=== PATIENT | female | born 1985 | race Caucasian/White ===

== ENCOUNTER 2017-01-23 21:35 | Inpatient (IN) ==
[2017-01-23] MEDS ORDERED: Mag Hydrox/Al Hydrox/Simeth 30 ML UDC PO PRN (22:06)
[2017-01-23] MEDS ORDERED: Haloperidol Lactate 5 MG/ML VIAL IM PRN (22:06)
[2017-01-23] MEDS ORDERED: *HR* LORazepam 1 MG TABLET PO PRN (22:06)
[2017-01-23] MEDS ORDERED: *HR* LORazepam 2 MG/ML VIAL IM PRN (22:06)
[2017-01-23] MEDS ORDERED: MOM Conc 10 ML UD.LIQ PO PRN (22:06)
[2017-01-23] MEDS ORDERED: Ibuprofen 400 MG TABLET PO PRN (22:06)
[2017-01-24] MEDS: traZODone 50 MG TABLET PO PRN ×2 (00:07→20:57)
[2017-01-24] MEDS ORDERED: Nicotine 2 MG GUM BC PRN (08:07)
--- NOTE | 2017-01-24 10:44 | Psychiatry History & Physical ---
Date of Encounter: 01/24/17 Time of Encounter: 10:00 History of Present Illness Patient Stated Chief Complaint: Delusional Medicare Admission Attestation: For traditional Medicare patients the provided hospital inpatient services are reasonable and necessary and in the case of services not specified as inpatient -only under 42 CFR 419.22 (n), that they are appropriately provided as inpatient services in accordance 42 CFR 412.3. For Critical Access Hospital the patient may reasonably be expected to be discharged or transferred to a hospital within 96 hours after admission to the Critical Access Hospital. Admitted From: Hospital to Hospital Transfer ([facility]) History of Present Illness: Ms. Landis is a 31 year old female admitted from [facility] for evaluation of psychosis. Patient was reported to be delusional paranoids and religiously preoccupied and noncompliant with her medication. Her tox screen was positive for THC. From the records patient had history of psychiatric treatment for psychosis and bipolar her most recent hospitalization was 2013 and she has been recently taking gabapentin for treatment of cyclothymia. [facility] where she has case management and medication management. She reports of poor sleep, irritability and she does not believe she needs to be in the hospital or take medication. She tells me she is spiritual . Patient also has a history of substance abuse including stimulants and opiates and benzodiazepine and has been in senior care for drug-related charges and currently on probation for similar charge. She has high school education and some college and unemployed and has 2 children age 7 and 9. She has a history of pseudoseizures and she believes marijuana is the best treatment for that condition and she smokes it daily. Past Med Surg Social Fam HX - Past Medical History Medical history: seizures - Past Psychiatric History Psychiatric history: Reports: bipolar, prior suicide attempt, schizophrenia, previous psychiatric hospitalization Family psychiatric history: Unknown Family History of Suicide: Unknown - Past Surgical History Surgical History: , sinus surgery - Social History Smoking Status: Current every day smoker Smokeless Tobacco Status: No Alcohol use: rarely Drug use: cocaine, opiates, marijuana, methamphetamine Medications & Allergies Gabapentin [Neurontin] 300 mg PO TID 01/23/17 [History] Cyclobenzaprine [Flexeril] 10 mg PO BID 01/24/17 [History] Fluticasone Propionate Nasal [Flonase] 1 spray NS DAILY 01/24/17 [History] Ibuprofen [Motrin] 800 mg PO Q8HR 01/24/17 [History] Loratadine [Claritin] 10 mg PO DAILY 01/24/17 [History] Allergies No Known Allergies Allergy (Verified 01/24/17 09:57) Review of Systems Psychiatric: Reports: irritability, mood swings, other (Paranoid delusions, religiously preoccupied) Mental Status Exam Patient orientation: Yes Person, Yes Time, Yes Place Level of alertness: Alert Patient appearance: Appropriate, Well Groomed Behavior: cooperative, anxious, suspicious, distractible, talkative Psychomotor activity: Increased Eye contact: Fleeting Contact Mood description: Angry, Anxious, Labile, Irritable Affect description: congruent with mood, labile, euphoric Speech pattern: Disorganized, Excessive, Pressured Speech volume: Loud Thought process: Tangential, Flight of Ideas, Disorganized Thought content: No Suicidal ideation, No Homicidal ideation, Yes Overt delusions, Yes Ideas of reference, Yes Preoccupation, Yes Paranoid delusion, Yes Latter-Day delusion Perceptual disturbances: Yes Reacting to internal stimuli, No Auditory hallucinations, No Visual hallucinations Attention span: Unable to Focus Memory description: Recent Impaired Patient reliability: Questionable Historian Intelligence estimate: Average Judgment: Limited Insight: Partial Results - Vital Signs Vital signs: Temp Pulse Resp BP 97.8 F 85 18 135/93 01/24/17 08:48 01/24/17 08:48 01/24/17 08:48 01/24/17 08:48 Assessment and Plan (1) Unspecified psychosis Current visit: Yes Status: Acute Plan: Admit inpatient for safety and stabilization, Close observation, Suicide Precautions per unit protocol, Encourage participation in unit milieu, Group Therapy, Monitor sleep, Monitor appetite Risks, benefits, side effects, alternatives discussed w/pt: Yes Patient agreeable to treatment: No (Refused adding any medication) Estimated Length of Stay (Days): 5 Qualifiers: Psychosis type: unspecified psychosis type Qualified Code(s): F29 - Unspecified psychosis not due to a substance or known physiological condition
[2017-01-24] MEDS ORDERED: Ibuprofen 800 MG TABLET PO SCH (14:00)
[2017-01-24] MEDS ORDERED: Acetaminophen 325 MG TABLET PO PRN ×2 (14:09→16:05)
[2017-01-24] MEDS: Gabapentin 300 MG CAPSULE PO SCH ×2 (14:28→20:27)
[2017-01-24] MEDS ORDERED: Ibuprofen 800 MG TABLET PO PRN (15:57)
[2017-01-24] MEDS: hydrOXYzine pamoate 25 MG CAPSULE PO PRN (19:55)
[2017-01-25] MEDS: Gabapentin 300 MG CAPSULE PO SCH ×3 (08:27→20:35)
[2017-01-25] MEDS: Loratadine 10 MG TABLET PO SCH (08:27)
[2017-01-25] MEDS ORDERED: Fluticasone Propionate Nasal 50 MCG/SPRAY BOTTLE NS SCH (09:00)
--- NOTE | 2017-01-25 10:52 | Psychiatry Progress Note ---
Date of Encounter: 01/25/17 Time of Encounter: 10:00 Subjective Interval history: Patient is seen for follow-up with treatment team. She is reported to take her medication on and off, she had a good night sleep was trazodone. She continued to be delusional and religiously preoccupied and anxious to be discharged. Her speech is pressured with flight of ideas. She is labile and irritable. She is refusing any additional medications. I discussed with the treatment team several issues and questions that need to be answered in order for patient to be stabilized and safely discharged: 1. Patient permission for social service worker to contact her bottle caser and her and assure the safety of her children 2. Reports on patient inability to take care of her children and herself including medication compliance 3. We may need to requests a court hearing including forced medication. Review of Systems Psychiatric: Reports: irritability, mood swings, other (Paranoid delusions, religiously preoccupied) Objective: Exam Patient orientation: Yes Person, Yes Time, Yes Place Level of alertness: Alert Patient appearance: Appropriate, Well Groomed Behavior: cooperative, nervous, restless, distractible, impulsive, talkative Psychomotor activity: Increased Eye contact: Fleeting Contact Mood description: Angry, Anxious, Labile, Irritable Affect description: congruent with mood, labile, anxious Speech pattern: Excessive, Pressured, Repetitive Speech volume: Loud Thought process: Tangential, Flight of Ideas, Racing Thought content: No Suicidal ideation, No Homicidal ideation, No Overt delusions , Yes Preoccupation, Yes Paranoid delusion, Yes Evangelical delusion Perceptual disturbances: No Auditory hallucinations, No Visual hallucinations Judgment: Fair Insight: Partial Results - Vital Signs Vital Signs: Temp Pulse Resp BP 98.4 F 70 16 126/81 01/25/17 08:11 01/25/17 08:11 01/25/17 08:11 01/25/17 08:11 Assessment and Plan (1) Unspecified psychosis Current visit: Yes Status: Acute Plan: Continue hospitalization, Close observation, Suicide Precautions per unit protocol, Encourage participation in unit milieu, Group Therapy, Monitor sleep, Monitor appetite Risks, benefits, side effects, alternatives discussed w/pt: Yes Patient agreeable to treatment: No (Refused adding any medication) Qualifiers: Psychosis type: unspecified psychosis type Qualified Code(s): F29 - Unspecified psychosis not due to a substance or known physiological condition Consult Discharge Plan - Plan Referrals: NO,PCP [Primary Care Provider] -
[2017-01-25] MEDS: traZODone 50 MG TABLET PO PRN (20:35)
[2017-01-26] MEDS: hydrOXYzine pamoate 25 MG CAPSULE PO PRN ×2 (01:33→12:16)
[2017-01-26] MEDS: Gabapentin 300 MG CAPSULE PO SCH ×3 (08:32→21:09)
[2017-01-26] MEDS: Loratadine 10 MG TABLET PO SCH (08:32)
--- NOTE | 2017-01-26 14:46 | Psychiatry Progress Note ---
Date of Encounter: 01/26/17 Time of Encounter: 14:20 Subjective Interval history: Patient seen for follow-up. Staff report she is less labile and more focused, she is compliant with medication and attend activities and group. Her speech is not pressured and no delusions are reported. She gave permission to the hospital social worker to contact her and her casey saw operator. piece dye worker reported information regarding patient's condition and her ability to manage the household and children. piece dye worker discussed with the hospital and a casey saw operator safety plan after discharge and help patient maintain compliance with medication and appointments. She is reporting good sleep and appetite. piece dye worker is working on discharge plans. Review of Systems Psychiatric: Reports: irritability, mood swings, other (Paranoid delusions, religiously preoccupied) Objective: Exam Patient orientation: Yes Person, Yes Time, Yes Place Level of alertness: Alert Patient appearance: Appropriate, Well Groomed Behavior: calm, cooperative Psychomotor activity: Normal Eye contact: Maintains Eye Contact Mood description: Euthymic/stable, Anxious Affect description: congruent with mood, full range Speech pattern: Normal rate, Normal rhythm, Normal tone Speech volume: Normal Thought process: Linear, Goal Oriented Thought content: No Suicidal ideation, No Homicidal ideation, No Overt delusions Perceptual disturbances: No Auditory hallucinations, No Visual hallucinations Judgment: Fair Insight: Partial Results - Vital Signs Vital Signs: Temp Pulse Resp BP 98.4 F 79 16 132/94 01/26/17 09:00 01/26/17 09:00 01/26/17 09:00 01/26/17 09:00 Assessment and Plan (1) Unspecified psychosis Current visit: Yes Status: Acute Plan: Continue hospitalization, Close observation, Suicide Precautions per unit protocol, Encourage participation in unit milieu, Group Therapy, Monitor sleep, Monitor appetite Risks, benefits, side effects, alternatives discussed w/pt: Yes Patient agreeable to treatment: No (Refused adding any medication) Qualifiers: Psychosis type: unspecified psychosis type Qualified Code(s): F29 - Unspecified psychosis not due to a substance or known physiological condition Consult Discharge Plan - Plan Referrals: Beth Carmona [facility] [place] [Outside]
[2017-01-26] MEDS: Ibuprofen 800 MG TABLET PO PRN (17:01)
[2017-01-27] MEDS: traZODone 50 MG TABLET PO PRN (00:29)
[2017-01-27] MEDS: Gabapentin 300 MG CAPSULE PO SCH ×2 (09:02→16:07)
[2017-01-27] MEDS: Loratadine 10 MG TABLET PO SCH (09:03)
[2017-01-27 09:12] VITALS: BP 109/82
[2017-01-27] MEDS: Ibuprofen 800 MG TABLET PO PRN (12:10)
--- NOTE | 2017-01-27 12:36 | Discharge Summary ---
Date of Encounter: 01/27/17 Time of Encounter: 12:31 Diagnosis - Discharge Diagnosis (1) Unspecified psychosis Status: Acute Qualifiers: Psychosis type: unspecified psychosis type Qualified Code(s): F29 - Unspecified psychosis not due to a substance or known physiological condition Medications - Discharge Medications Prescriptions: Gabapentin [Neurontin] 300 mg PO TID #90 capsule TraZODone 50 mg PO HS PRN #30 tablet PRN Reason: Insomnia Cyclobenzaprine [Flexeril] 10 mg PO BID 01/24/17 [History] Fluticasone Propionate Nasal [Flonase] 1 spray NS DAILY 01/24/17 [History] Ibuprofen [Motrin] 800 mg PO Q8HR 01/24/17 [History] Loratadine [Claritin] 10 mg PO DAILY 01/24/17 [History] Gabapentin [Neurontin] 300 mg PO TID #90 capsule 01/27/17 [Rx] TraZODone 50 mg PO HS PRN #30 tablet 01/27/17 [Rx] Allergies No Known Allergies Allergy (Verified 01/24/17 09:57) Provider Date of admission: 01/23/17 21:35 Primary care physician: PCP NO Discharging clinician: Lneny Vickers Assessment and Plan - Patient/Caregiver Discharge Instructions Activity: resume usual activities as tolerated Diet: regular diet - Follow up Plan Follow up with: Beth Carmona [facility] [place] [Outside] - 01/31/17 4:00 pm (The above appointment is with Claudia Cruz. You will also see Mary Schwab , psychiatric prescriber, on 02/13/2017 at 9:00am. ) Functional capacity at discharge: independent ambulation Overall status at discharge: Stable Disposition: Home, Self-Care Hospital Course Hospital course: Ms. Landis is a 31 year old female admitted for treatment of psychosis and manic episode. For details of the admission please see H&P On the unit patient was manic with pressured speech and delusional and religiously preoccupied, she was irritable and easily agitated. She was started on medication gabapentin and trazodone, she refuses antipsychotics medication because of history of side effects. She started improving her sleep improved, she was less labile and cooperative with medication. She participated in groups and activities. She gave permission for oncology social work to contact her and her human services case manager for history information and discharge planning. Prior to discharge patient was medically stable she denied any suicidal ideation, did not presents any delusional speech, she displayed improved insights and judgment. Discharge plans including follow-up appointments was reviewed and completed by the oncology social work. Patient was advised on medication compliance to prevent further episodes. - Time Spent with Patient Total time spent providing and/or coordinating discharge services: Greater than 30 minutes Quality - Multiple Antipsychotics Patient discharged on 2 or more antipsychotic medications: No Procedures - Procedures Procedures: Medication Management, Crisis Stabilization, Supportive Therapy, Group Therapy, Psychoeducational Therapy Mental Status Exam - Mental Status Exam Patient orientation: Yes Person, Yes Time, Yes Place Level of alertness: Alert Patient appearance: Appropriate, Well Groomed Behavior: calm, cooperative Psychomotor activity: Normal Eye contact: Maintains Eye Contact Mood description: Euthymic/stable Affect description: congruent with mood, full range Speech pattern: Normal rate, Normal rhythm, Normal tone Speech Volume: Normal Thought process: Linear, Goal Oriented Thought Content: No Suicidal ideation, No Homicidal ideation, No Overt delusions Perceptual Disturbances: No Auditory hallucinations, No Visual hallucinations Judgment: Limited Insight: Partial
== END 2017-01-27 16:15 | disposition home or self-care (01) | DRG 751 ==
LOC: 1ANU 21:35
PROVIDERS: ADMIT Psychiatry & Neurology Psychiatry; ATTEND Psychiatry & Neurology Psychiatry